=== PATIENT | female | born 1985 | race Caucasian/White ===

== ENCOUNTER 2021-12-30 21:44 | Emergency (ER) | payer OTHER ==
[~2021-12-30] VITALS: Ht 154.9 cm; Wt 54.0 kg
[2021-12-30] MEDS ORDERED: MUPIROCIN15 GM TOP (23:49)
[2021-12-30] MEDS ORDERED: DUI500 PO (23:49)
== END 2021-12-31 02:29 | disposition home or self-care (01) ==
LOC: ER 21:44
DX: S01.81XA Laceration without foreign body of other part of head, initial encounter (principal); W18.30XA Fall on same level, unspecified, initial encounter; Y93.9 Activity, unspecified; Y92.9 Unspecified place or not applicable; Y99.9 Unspecified external cause status